=== PATIENT | male | born 1970 | race Hispanic/Latino ===

== ENCOUNTER 2023-06-30 10:55 | Day surgery (SDC) | payer OTHER ==
[~2023-06-30] VITALS: Ht 167.6 cm; Wt 79.5 kg
[~2023-06-30 10:55] MED LIST: ARTHRITIS PAIN150 G1 TOP; CEFAZOLIN SODIUM 2 GM/20 ML SYR IV SCH; DIFLUNISAL500 MG PO; DOCUSATE SODIU250 MG PO; IBLOOD GLUCOSE TEST STRIP 1 EA TEST VI PRN; LACTATED RINGER'S 1,000 ML IV SCH; LIDOCAINE HCL 1% 5 ML SDV INJ ONE; TRIAMCINOLONE A15 G3 TOP; ZYRTEC10 MG PO
[2023-06-30 11:18] VITALS: BP 124/79
[2023-06-30 11:35] LABS: BASOPHILS 0.7 % (0-2); EOSINOPHILS 3.5 % (0-6); HEMATOCRIT 40.1 % (35.0-50.0); HEMOGLOBIN 14.3 g/dL (12.0-18.0); LYMPHOCYTES 35.8 % (24-44); MCH 31.4 (27-36); MCHC 35.7 g/dl (30-36); MCV 88.1 fl (81-99); MONOCYTES 8.9 % (0-12); NEUTROPHILS 51.1 % (39-80); PLATELET COUNT 276 K/uL (140-440); RBC 4.55 M/ul (4.3-5.7); RDW 13.1 (10.5-15.0)
[2023-06-30 11:53] LABS: ALBUMIN 3.8 g/dL (3.4-5.0); ALBUMIN/GLOBULIN RATIO 1.12 (1.1-2.4); ANION GAP 11.7 (7-21); BILIRUBIN, TOTAL 0.6 ng/dL (0.2-1.0); BUN/CREATININE RATIO 7.5 (6.0-28.6); CALCIUM 8.9 mg/dL (8.5-10.1); CREATININE, SERUM 0.8 mg/dL (0.70-1.30); POTASSIUM 3.7 mmol/L (3.5-5.1); PROTEIN, TOTAL 7.2 g/dL (6.4-8.2)
--- NOTE | 2023-06-30 11:53 | NUR ---
1130-PATIENT AND OFFICERES ARE UPDATED ON TIME FOR SURGICAL PROCEDURE. NO OTHER NEEDS AT THIS TIME.
--- NOTE | 2023-06-30 13:16 | NUR ---
LE 1215-PATIENT LAYING IN BED. UPDATED PATIENT AND OFFICERS OF DELAY IN SURGERY START TIME. WARM BLANKET PROVIDED. NO OTHER NEEDS AT THIS TIME.
--- NOTE | 2023-06-30 13:17 | NUR ---
LE 1315-PATIENT LAYING IN BED. PROVIDED PATIENT WITH ANOTHER WARM BLANKET. NO OTHER NEEDS AT THIS TIME.
--- NOTE | 2023-06-30 13:53 | NUR ---
1351-PATIENT IS DOING FINE. NO OTHER NEEDS AT THIS TIME.
[2023-06-30] MEDS ORDERED: fentaNYL citrate 100 MCG/2 ML VIAL ONE (14:20)
[2023-06-30] MEDS ORDERED: MIDAZOLAM HCL 2 MG/2 ML VIAL ONE (14:20)
[2023-06-30] MEDS ORDERED: BUPIVACAINE 0.75% IN DEXTROSE 2 ML AMP ONE (14:21)
[2023-06-30] MEDS ORDERED: LIDOCAINE HCL 2% 5 ML SDV ONE (14:21)
[2023-06-30] MEDS ORDERED: ondansetron HCL 4 MG/2 ML VIAL ONE (14:24)
[2023-06-30] MEDS ORDERED: DEXAMETHASONE SOD PHOS 4 MG/ML VIAL ONE (14:24)
[2023-06-30] MEDS ORDERED: propofoL 200 MG/20 ML VIAL ONE (14:24)
[2023-06-30] MEDS ORDERED: HYDROCODON-ACE1 EA10 PO (16:41)
[2023-06-30] MEDS ORDERED: TYLENOL EXTRA500 MG PO (16:42)
[2023-06-30] MEDS ORDERED: MOTRIN IB200 MG PO (16:42)
[2023-06-30] MEDS ORDERED: METAMUCIL FREE822 GM PO (16:43)
[2023-06-30] MEDS ORDERED: HYDROCODONE/ACETA 5/325 TAB PO PRN (16:45)
[2023-06-30] MEDS ORDERED: LACTATED RINGER'S 1,000 ML IV SCH (16:45)
[2023-06-30] MEDS ORDERED: ACETAMINOPHEN 500 MG TAB PO PRN (16:45)
[2023-06-30] MEDS ORDERED: ondansetron HCL 4 MG/2 ML VIAL IV PRN (16:45)
[2023-06-30] MEDS ORDERED: IBUPROFEN 600 MG TAB PO PRN (16:45)
[2023-06-30 17:07] VITALS: BP 121/77
--- NOTE | 2023-06-30 17:19 | NUR ---
1705-PATIENT BACK TO TREATMENT ROOM FROM [facility] ON [address]. RECEIVED REPORT FROM SONYA JOSE. PATIENT IS AWAKE. RESP EVEN AND UNLABORED. DENIES PAIN AND NAUSEA. ORDER FOOD FOR PATIENT. PATIENT DOES NOT FEEL THE URGE TO URINATE. OFFICERS IN ROOM. 1715-PATIENT SITTING AT BEDSIDE. PATIENT STANDS UP AND TAKES A STEP WITH 2 RN ASSIST. GAIT UNSTEADY. LEGS ARE TINGLY. PATIENT BACK TO BED. 1720-DINNER GIVEN TO PATIENT. CALL LIGHT WITHIN REACH.
[2023-06-30 18:00] VITALS: BP 129/87
--- NOTE | 2023-06-30 18:12 | NUR ---
1755-PATIENT UP TO BEDSIDE. PATIENT STANDS UP AND WALKS. STATSE FEELS OK. PATIENT THEN WALKS TO RESTROOM. GAIT STEADY. PATIENT VOIDS 400ML OF URINE. 1758-PATIENT GETTING DRESSED.
--- NOTE | 2023-06-30 18:13 | NUR ---
180-WENT OVER DISCHARGE INSTRUCTIONS WITH PATIENT. ALL QUESTIONS ANSWERED. PATIENT LEAVES WITH BOTH OFFICERS. 1804-PHONE CALL TO [facility] WITH DISCHARGE INSTRUCTIONS FOR KIT.
--- NOTE | 2023-06-30 18:14 | NUR ---
06/30/23 1814 Preethi Story 1618- PT ARRIVES TO PACU, SEMI COOMBS POSITION. O2 IN PLACE AT 6L PER MASK, LR INFUSING TO RH IV. PT REACTIVE TO STIMULUS. ABD SOFT, NON DISTENDED. ALL MONITORS IN PLACE. 1625- PT SATS 100% ON 6L PER MASK. MOVED TO ROOM AIR. PT WAKES EASILY TO VERBAL STIMULI. 1635- PT ALERT, CONVERSING WITH STAFF. DENIES PAIN AND NAUSEA. LR CONTINUES TO INFUSE. REPORTS FEET FEEL TINGLY AND DIFFERENT, STRONG MOVEMENT BILATERALLY. 1640- PT SITTING UP, DRINKING SODA AND EATING PUDDING. NO SIGNS OF DISTRESS. NO COMPLAINTS. PT AWARE OF NEED TO URINATE PRIOR TO LEAVING. 1700- PT REPORTS UNABLE TO URINATE, WILL CONTINUE IV FLUIDS AND PUSH ORAL FLUIDS. PT TAKEN TO DAY SURGERY VIA BED. ALERT AND ORIENTED. NO SIGNS OF DISTRESS. LR INFUSING TO RH. REPORT TO KAYLA JOSE, CARE OF PT TURNED OVER AT THIS TIME.
--- NOTE | 2023-07-02 12:16 | OR ---
[facility] [address] [place], [place] [address] Signed DATE OF OPERATION: 06/30/2023 SURGEON: Joel Mcdonough MD PREOPERATIVE DIAGNOSIS: Grade 4 hemorrhoidal disease. POSTOPERATIVE DIAGNOSES: Grade 4 hemorrhoidal disease including left posterior accessory hemorrhoidal complex and left anterior accessory hemorrhoidal complex. PROCEDURE: Excision of internal and external hemorrhoidal complex x2. ANESTHESIA: Saddle block, Francisco Dockery, GENERAL MAINTENANCE ENGINEER and local 10 mL of 0.25% Marcaine with epinephrine. INDICATION: This 52-year-old man has undergone colonoscopy by me yesterday for known family history of colon cancer. He also has extensive grade 4 hemorrhoidal disease, which is symptomatic. He was approved for both colonoscopy performed yesterday, which was essentially normal other than the hemorrhoidal disease as well as hemorrhoidectomy today. The risk of bleeding, infection, anal stenosis, need for additional treatment and so forth were all reviewed in detail. He understands and wished to proceed. FINDINGS: Internal and external hemorrhoidal complex was noted in the left posterior accessory position as well as the left anterior accessory position. Both were excised fully with special care to avoid suturing into the sphincter muscle, so as to avoid postoperative pain problems. Closure of the mucosa was accomplished the leaving open space for drainage as needed. DESCRIPTION OF PROCEDURE: The patient was brought to the operating room after undergoing saddle block anesthetic and placed in the prone christin-knife position with the buttocks taped apart. Intravenous sedation was induced. The patient was given Ancef and ultimately additionally Flagyl intravenous antibiotic. Sterile preparation with Betadine solution was undertaken. Anal dilatation was undertaken in a two-finger technique. Obvious left posterior and left anterior accessory hemorrhoidal complexes were noted to have both external and internal components. The remaining anorectum showed no sign of additional external Electronically Signed By: JOEL MCDONOUGH MD 07/02/23 1216 PATIENT NAME: ROSA ELENA CORNEJO OPERATIVE REPORT DATE OF : 74 REPORT #: [id number] PHYSICIAN: JOEL MCDONOUGH MD PCP: LIOR DAVIS REPORT IS CONFIDENTIAL AND NOT TO BE RELEASED WITHOUT AUTHORIZATION [facility] [address] [place] [place], [place] [address] Signed hemorrhoidal disease. An anal retractor was placed and a Nicole clamp was used to grasp the external hemorrhoidal tissue in the left posterior accessory position, elevating allowing for excision with electrocautery with meticulous care, so as to avoid bleeding and any trauma to the underlying sphincter complex. The dissection was taken up into the anal canal proximal to the dentate line. The root of the hemorrhoid was then secured with a 2-0 chromic suture. The hemorrhoid was then excised. The mucosa was meticulously closed with 2-0 chromic suture closing only the mucosa and avoiding deep muscular bites. It was tied prior to ultimate closure externally to allow for drainage. With similar technique, a left anterior accessory hemorrhoidal complex was similarly excised. The remaining anorectum appeared free of significant disease. 10 mL of 0.25% Marcaine with epinephrine was injected locally. Irrigation was undertaken with sterile water assuring hemostasis. A peripad was applied. He was ultimately returned to the supine position and taken to the recovery room in good condition having suffered no complication. Blood loss was estimated at less than 5 mL. Sponge, needle, and instrument counts were reported as correct x3. Joel Mcdonough MD JM/MODL /[id number] cc: MATT Burden Copies: LIOR DAVIS ~ Electronically Signed By: JOEL MCDONOUGH MD 07/02/23 1216 PATIENT NAME: ROSA ELENA CORNEJO OPERATIVE REPORT DATE OF : 74 REPORT #: [id number] PHYSICIAN: JOEL MCDONOUGH MD PCP: LIOR DAVIS REPORT IS CONFIDENTIAL AND NOT TO BE RELEASED WITHOUT AUTHORIZATION
--- NOTE | 2023-07-06 13:03 | PATH ---
[facility] [address] [place], [place] [address] Signed SPECIMEN(S): A RIGHT POSTERIOR ACCESSORY HEMORRHOIDS SPECIMEN(S): B LEFT ANTERIOLATERAL HEMORRHOIDS SPECIMEN SOURCE: A. RIGHT POSTERIOR ACCESSORY HEMORRHOIDS B. LEFT ANTERIOLATERAL HEMORRHOIDS CLINICAL HISTORY: Hemorrhoidectomy. FINAL PATHOLOGIC DIAGNOSIS: A. Tissue from right posterior anorectal mucosa: - Benign anorectal mucosa with submucosal ectatic vessels consistent with hemorrhoids. - No malignancy identified. B. Tissue from left anterior lateral anus: - Benign anal mucosa with submucosal ectatic vessels consistent with hemorrhoids. - No malignancy identified. [facility] MICROSCOPIC EXAMINATION: Histologic sections of all submitted blocks are examined by light microscopy. These findings, together with the gross examination, support the pathologic diagnosis. GROSS DESCRIPTION: A. The specimen, labeled and designated "Mecott Menjivar, right posterior accessory hemorrhoidal complex," is received in formalin and consists of irregular shaped skin and mucosal tissue that measure 3.5 x 2.5 x 0.7 cm. Sectioning through the specimens reveal pink-pina, focally congested submucosal and subcutaneous tissue. Carpenter And Joiner sections are submitted in (A1). B. The specimen, labeled and designated "Mecott Menjivar, left anterior lateral hemorrhoidal complex," is received in formalin and consists of irregular shaped skin tissue fragment that measures 3.5 x 1.5 x 0.4 cm. Sectioning through the specimen to reveal pink-pina, focally congested subcutaneous tissue. Carpenter And Joiner sections are submitted in (B1). JS (under the direct supervision of a pathologist) The Gross Description was prepared using a voice recognition system. The report was reviewed for accuracy; however, sound-alike word errors, addition and/or PATIENT NAME: ROSA ELENA CORNEJO PATHOLOGY DATE OF : 74 REPORT #: [id number] PHYSICIAN: FLORA PATHOLOGY PCP: LIOR DAVIS REPORT IS CONFIDENTIAL AND NOT TO BE RELEASED WITHOUT AUTHORIZATION [facility] [address] [place], [place] [address] Signed deletions may occur. If there is any question about this report, please contact Client Services. ADDITIONAL NOTES: Immunohistochemical and/or in situ hybridization studies if performed in this case included appropriate positive controls that reacted as expected. This test was developed and its performance characteristics determined by [facility]. It has not been cleared or approved by the U.S. Food and Drug Administration. The FDA has determined that such clearance or approval is not necessary. This test is used for clinical purposes. It should not be regarded as investigational or for research. [facility] is certified under the Clinical Laboratory Improvement Amendments of 1988 (CLIA) as qualified to perform high complexity clinical laboratory testing. PERFORMING LABORATORY: Technical component was performed by [facility], [address] [place] [id number] (CLIA# [id number]). Professional interpretation was performed by [facility], [address] [place] [id number] (CLIA#: [id number]). Diagnostician: Brendan Dahl MD Pathologist Electronically Signed 07/06/2023 Copies: ~ PATIENT NAME: ROSA ELENA CORNEJO PATHOLOGY DATE OF : 74 REPORT #: [id number] PHYSICIAN: FLORA PATHOLOGY PCP: LIOR DAVIS REPORT IS CONFIDENTIAL AND NOT TO BE RELEASED WITHOUT AUTHORIZATION
== END 2023-06-30 18:04 | disposition home or self-care (01) ==
LOC: DS 10:55
PROVIDERS: ATTEND Surgery
PROC: 06BY0ZC Excision of Hemorrhoidal Plexus, Open Approach (ICD-10-PCS; principal; 2023-06-30 12:45)
DX: K64.3 Fourth degree hemorrhoids (principal); Z80.0 Family history of malignant neoplasm of digestive organs; Z86.010 Personal history of colon polyps
CPT/HCPCS: 00902; 36415; 80053; 85025; J0690; J1100; J2001; J2250; J2405; J2704; J3010